=== PATIENT | female | born 1945 | race Caucasian/White ===

== ENCOUNTER 2021-11-17 17:45 | Outpatient (REF) | payer MEDICARE, SELFPAY | END 2021-11-17 17:46 | disposition home or self-care (01) | LOC: HO.LNP 17:45 | PROVIDERS: Visit Provider Hospitalist | DX: R82.90 Unspecified abnormal findings in urine (principal) | CPT/HCPCS: 87086 ==

== ENCOUNTER 2021-11-24 10:33 | Outpatient (REF) | payer MEDICARE, SELFPAY ==
[2021-11-24 13:33] LABS: Mean Corpuscular HGB Conc 31.1 g/dl (31.0-35.0); Mean Corpuscular Hemoglobin 28.6 pg (27.0-33.0); Mean Platelet Volume 11.7 fL (9.4-12.3); Platelet Count 224 X10*3/uL (160-400); Red Blood Count 4.89 X10*6/uL (4.20-5.50); Red Cell Distribution Width 13.3 % (11.0-16.0); White Blood Count 7.2 X10*3/uL (4.8-10.8)
[2021-11-24 13:47] LABS: Alanine Aminotransferase 15 U/L (0-31); Albumin Level 4.2 g/dL (3.5-5.0); Alkaline Phosphatase 104 U/L (39-117); Anion Gap 17 (12-20); Aspartate Amino Transferase 12 U/L (5-31); Bilirubin Direct 0.3 mg/dL (0.0-0.5); Blood Urea Nitrogen 24 mg/dL (9-16); Carbon Dioxide 26 mmol/L (22-29); Chloride 101 mmol/L (96-108); Estimated Glomerular Filt Rate 42; Glucose Fasting 98 mg/dL (60-99); Potassium 4.5 mmol/L (3.3-5.1); Sodium 139 mmol/L (135-145); Total Protein 7.5 g/dL (6.5-8.0)
[2021-11-24 14:09] LABS: TSH reflex Free T4 2.46 uIU/mL (0.32-4.0)
== END 2021-11-24 10:34 | disposition home or self-care (01) ==
LOC: HO.WFDLDS 10:33
PROVIDERS: Visit Provider Hospitalist
DX: Z00.00 Encounter for general adult medical examination without abnormal findings (principal)
CPT/HCPCS: 36415; 80053; 80076; 82248; 84443; 85027

== ENCOUNTER 2022-02-16 12:22 | Outpatient (REF) | payer MEDICARE, SELFPAY ==
[2022-02-16 14:17] LABS: Cholesterol 250 mg/dL; HDL Cholesterol 67 mg/dL; LDL Cholesterol Calculated 155 mg/dl; Triglycerides 143 mg/dL
== END 2022-02-16 12:23 | disposition home or self-care (01) ==
LOC: HO.WFDLDS 12:22
PROVIDERS: Visit Provider Hospitalist
DX: Z13.220 Encounter for screening for lipoid disorders (principal); E66.9 Obesity, unspecified; Z79.899 Other long term (current) drug therapy; Z85.9 Personal history of malignant neoplasm, unspecified
CPT/HCPCS: 36415; 80061

== ENCOUNTER 2022-08-11 15:21 | Outpatient (REF) | payer MEDICARE, SELFPAY | END 2022-08-11 15:22 | disposition home or self-care (01) | LOC: HO.LAB 15:21 | PROVIDERS: Visit Provider Hospitalist | DX: R35.0 Frequency of micturition (principal) | CPT/HCPCS: 87086 ==